=== PATIENT | female | born 1995 | race Caucasian/White ===

== ENCOUNTER 2018-11-04 11:00 | Emergency (ER) | payer BC ==
[~2018-11-04] VITALS: Ht 162.6 cm; Wt 86.4 kg
[2018-11-04 11:28] LABS: BASO % 0.6 % (0.0-1.0); EOS # 0.1 10^3/uL (0.0-0.50); EOS % 1.2 % (0.0-3.0); HEMATOCRIT 42.4 % (36.0-47.0); HEMOGLOBIN 14.6 g/dl (12.0-15.5); LYMPH # 1.6 10^3/uL (1.5-6.5); LYMPH % 22.7 % (24.0-44.0); MEAN CORPUSCULAR HEMOGLOBIN 31.3 pg (27.0-33.0); MEAN CORPUSCULAR HGB CONC 34.4 g/dl (32.0-36.5); MONO # 0.4 10^3/uL (0.0-0.8); MONO % 5.8 % (0.0-5.0); NEUTROPHILS % 69.3 % (36.0-66.0); PLATELET COUNT, AUTOMATED 268 10^3/uL (150-450); RED BLOOD COUNT 4.66 10^6/uL (4.00-5.40); WHITE BLOOD COUNT 7.2 10^3/uL (4.0-10.0)
[2018-11-04 12:10] LABS: BLOOD UREA NITROGEN 8 MG/DL (7-18); CALCIUM LEVEL 9.2 MG/DL (8.5-10.1); CARBON DIOXIDE LEVEL 25 MEQ/L (21-32); CHLORIDE LEVEL 108 MEQ/L (98-107); CREATININE FOR GFR 0.89 MG/DL (0.55-1.30); GLOMERULAR FILTRATION RATE > 60.0 (>60); GLUCOSE, FASTING 101 MG/DL (70-100); HCG, SERUM QUANTITATIVE 39324 MIU/ML; POTASSIUM SERUM 3.9 MEQ/L (3.5-5.1); SODIUM LEVEL 140 MEQ/L (136-145)
--- NOTE | 2018-11-04 13:15 | REP ---
FIRST TRIMESTER ULTRASOUND: Real-time sonographic evaluation of the gravid uterus performed utilizing transabdominal technique. There is a single living intrauterine gestation, the estimated gestational age 6 weeks 3 days based on a crown-rump length of 6 mm, EDC 06/27/2019. heart rate 124 beats per minute. There is a subchorionic hemorrhage present which measures 2.8 x 0.7 x 2.7 cm, anteriorly. No maternal adnexal region abnormality is seen. There is no evidence of ovarian torsion with duplex Doppler evaluation. Electronically Signed by Erickson Taylor MD 11/06/2018 07:26 P
[2018-11-04] MEDS ORDERED: RHOGAM 300 MCG (1500 IU) INJ (J2790) IM ONE (14:00)
[2018-11-04] MEDS ORDERED: AMOX500C PO (14:32)
[2018-11-04 14:39] VITALS: BP 104/72
[2018-11-06] MEDS ORDERED: CEFD1CAP8 PO (12:14)
== END 2018-11-04 14:40 | disposition home or self-care (01) ==
LOC: M ED 11:00
DX: O20.8 Other hemorrhage in early pregnancy (principal); O23.41 Unspecified infection of urinary tract in pregnancy, first trimester; Z3A.01 Less than 8 weeks gestation of pregnancy
CPT/HCPCS: 36415; 76801; 80048; 81001; 84702; 85025; 86850; 86901; 87088; 87186; 93976; 96372; 99283; J2790

== ENCOUNTER → 2018-11-16 | Outpatient (CLI) | payer BC ==
[~2018-11-16] MED LIST: AMOX500C PO; CEFD1CAP8 PO
[2018-11-16 13:39] LABS: BASO # 0.1 10^3/uL (0.0-0.2); BASO % 0.6 % (0.0-1.0); EOS # 0.1 10^3/uL (0.0-0.50); EOS % 0.6 % (0.0-3.0); HEMATOCRIT 39.1 % (36.0-47.0); HEMOGLOBIN 13.2 g/dl (12.0-15.5); LYMPH # 1.9 10^3/uL (1.5-6.5); LYMPH % 24.1 % (24.0-44.0); MEAN CORPUSCULAR HEMOGLOBIN 31.4 pg (27.0-33.0); MEAN CORPUSCULAR HGB CONC 33.8 g/dl (32.0-36.5); MEAN CORPUSCULAR VOLUME 93.1 fl (80.0-96.0); MONO # 0.4 10^3/uL (0.0-0.8); MONO % 5.3 % (0.0-5.0); NEUTROPHILS # 5.4 10^3/uL (1.8-7.7); NEUTROPHILS % 69.1 % (36.0-66.0); PLATELET COUNT, AUTOMATED 267 10^3/uL (150-450); WHITE BLOOD COUNT 7.9 10^3/uL (4.0-10.0)
[2018-11-16 14:59] LABS: HEPATITIS C VIRUS ABY INDEX 0.1 INDEX (<0.8); HIV 1&2 SCREEN CENTAUR NEGATIVE (NEGATIVE); RUBELLA IgG QUALITATIVE IMMUNE (IMMUNE)
== END ==
LOC: M LAB 12:35
PROVIDERS: ATTEND Advanced Practice Midwife
DX: Z34.81 Encounter for supervision of other normal pregnancy, first trimester (principal); Z3A.08 8 weeks gestation of pregnancy
CPT/HCPCS: 36415; 85025; 86762; 86780; 86803; 86850; 86870; 87340; 87389; G0123

== ENCOUNTER → 2018-11-17 | Outpatient (REF) | payer BC ==
[2018-11-17 14:29] LABS: CHLAMYDIA DNA AMPLIFICATION NEGATIVE (NEGATIVE); GC DNA AMPLIFICATION NEGATIVE (NEGATIVE)
== END ==
LOC: M LAB REF 12:17
PROVIDERS: ATTEND Advanced Practice Midwife
DX: Z3A.08 8 weeks gestation of pregnancy (principal); Z34.81 Encounter for supervision of other normal pregnancy, first trimester

== ENCOUNTER → 2018-12-14 | Outpatient (REF) | payer BC | LOC: M LAB REF 12:59 | PROVIDERS: ATTEND Advanced Practice Midwife | DX: Z34.01 Encounter for supervision of normal first pregnancy, first trimester (principal) ==

== ENCOUNTER → 2019-01-11 | Outpatient (REF) | payer BC | LOC: M LAB REF 18:45 | PROVIDERS: ATTEND Obstetrics & Gynecology | DX: Z34.82 Encounter for supervision of other normal pregnancy, second trimester (principal); Z3A.00 Weeks of gestation of pregnancy not specified ==

== ENCOUNTER → 2019-01-27 | Outpatient (CLI) | payer BC ==
--- NOTE | 2019-01-27 10:40 | REP ---
Obstetric ultrasound for anatomy: There is a single intrauterine gestation. position is variable. heart rate is 156 beats minute. The placenta is anterior without previa or abruptio. The placenta is grade zero. The amniotic fluid volume subjectively is normal. The cervix measures 5.0 cm length. Gestational age by today's ultrasound is 19 weeks 2 days/RASHEED 06/21/2019. Gestational age by the first ultrasound is 18 weeks 3 days/RASHEED 06/27/2019. Gestational age by LMP is 18 weeks 3 days/RASHEED 06/27/2019. weight is 297 grams/0 pounds, 10 ounces. This is the 92nd percentile for 18 weeks 3 days. The following anatomic structures are identified and are unremarkable: Cranium, choroid plexus, cavum septum pellucidum, cerebellum, upper lip, lungs, four-chamber heart, cardiac right ventricular outflow tracts, diaphragm, stomach, cord insertion, three-vessel cord, kidneys, bladder, spine and upper lower extremities. Suboptimally demonstrated because of position is the facial profile. A followup study dedicated to this structure might be considered. There is an echogenic focus in the cardiac left ventricle, likely artifact from the chorda tendineae. Electronically Signed by Erickson Paris MD 01/27/2019 10:33 A
== END ==
LOC: M RAD 09:00
PROVIDERS: ATTEND Obstetrics & Gynecology
DX: Z34.82 Encounter for supervision of other normal pregnancy, second trimester (principal)

== ENCOUNTER → 2019-02-27 | Outpatient (CLI) | payer BC ==
--- NOTE | 2019-02-28 06:15 | REP ---
Clinical: Anatomical evaluation. Comparison: 01/27/2019 . Findings: Examination demonstrates a single live intrauterine in cephalic presentation. motion is identified by technologist. Placenta is noted anterior/fundal and grade zero without evidence for placenta previa or abruption. Amniotic fluid volume is normal. Cervix measures 4.8 cm in length and appears closed. No evidence for nuchal cord. Gestational age by LMP 22 weeks 6 days with RASHEED 06/27/2019 . Gestational age by current measurements 24 weeks 2 days with RASHEED 06/17/2019 . FHR equals 139 beats per minute. Estimated weight 709 grams ( greater than 97 percentile based on age by LMP; 56 percentile based on age by current measurements). Anatomical assessment demonstrates normal structures including cranium, choroid plexus, cavum, cerebellum/posterior fossa, facial features, lungs, four-chamber heart/ventricular outflow tracts, diaphragm, stomach, cord insertion/three-vessel cord, kidneys/bladder, spine, and extremities. Impression: 1. Single live intrauterine in cephalic presentation. Estimated weight as described above. 2. Anatomical assessment is complete and normal. Electronically Signed by Murali Davis MD 02/28/2019 06:05 A
== END ==
LOC: M RAD 10:39
PROVIDERS: ATTEND Advanced Practice Midwife
DX: Z34.02 Encounter for supervision of normal first pregnancy, second trimester (principal); Z36.89 Encounter for other specified antenatal screening; Z3A.22 22 weeks gestation of pregnancy

== ENCOUNTER → 2019-03-21 | Outpatient (CLI) | payer BC ==
[2019-03-21 15:20] LABS: HEMATOCRIT 33.6 % (36.0-47.0); MEAN CORPUSCULAR HEMOGLOBIN 32.1 pg (27.0-33.0); MEAN CORPUSCULAR HGB CONC 32.7 g/dl (32.0-36.5); PLATELET COUNT, AUTOMATED 288 10^3/uL (150-450); RED BLOOD COUNT 3.43 10^6/uL (4.00-5.40); WHITE BLOOD COUNT 9.7 10^3/uL (4.0-10.0)
== END ==
LOC: M LAB 13:04
PROVIDERS: ATTEND Advanced Practice Midwife
DX: Z34.02 Encounter for supervision of normal first pregnancy, second trimester (principal); Z36.89 Encounter for other specified antenatal screening

== ENCOUNTER → 2019-03-28 | Outpatient (CLI) | payer BC | LOC: M LAB 07:57 | PROVIDERS: ATTEND Advanced Practice Midwife | DX: R73.02 Impaired glucose tolerance (oral) (principal) ==